=== PATIENT | male | born 1965 | race Caucasian/White ===

== ENCOUNTER → 2019-05-18 | Outpatient (CLI) | payer BC ==
--- NOTE | 2019-06-04 10:37 | EM ---
EVENT MONITOR DATE OF SERVICE: 05/18/2019. REFERRING PHYSICIANS: Dr. Adhikari CLINICAL INFORMATION: The patient was monitored for 14 days. The baseline rhythm appeared to be sinus mechanism. The patient did have multiple episodes of nonsustained ventricular tachycardia. Beside that, the patient did have multiple episodes of narrow complex tachycardia consistent with possible atrial fibrillation with RVR. He did report multiple episodes of symptoms including heart racing and fluttering as well as fast heartbeat and these episodes were consistent with ventricular tachycardia mainly. No evidence of sinus pause or sinus arrest. No evidence of any advanced AV block seen. CONCLUSION: 1. This is a 14-day event monitor. 2. The baseline rhythm is a sinus mechanism. 3. Multiple episodes of ventricular tachycardia seen. 4. Multiple episodes of atrial fibrillation with RVR seen. 5. The patient reported symptoms of heart racing and fluttering and the symptoms were associated with ventricular tachycardia as well as with atrial fibrillation. 6. No evidence of sinus pause or sinus arrest seen in the dictation. MMODL / IJN: [id number] /
== END | disposition home or self-care (01) ==
LOC: RADECHMAIN 11:59
PROVIDERS: ATTEND Family Medicine
DX: I47.2 Ventricular tachycardia (principal); I48.2 Chronic atrial fibrillation
CPT/HCPCS: 93270

== ENCOUNTER → 2019-06-01 | Outpatient (CLI) | payer BC ==
--- NOTE | 2019-06-02 08:59 | ECHOF ---
Referral Reason:R00.2 palpitations MEASUREMENTS -------- HEIGHT: 182.9 cm WEIGHT: 54.9 kg BP: RVIDd: 3.1 cm (< 3.3) IVSd: 1.3 cm (0.6 - 1.1) LVIDd: 4.7 cm (3.9 - 5.3) LVPWd: 1.7 cm (0.6 - 1.1) IVSs: 1.6 cm LVIDs: 4.1 cm LVPWs: 1.5 cm LA Diam: 3.7 cm (2.7 - 3.8) LAESV Index (A-L): 25.39 ml/m Ao Diam: 3.4 cm (2.0 - 3.7) AV Cusp: 1.9 cm (1.5 - 2.6) LA Diam: 3.4 cm (2.7 - 3.8) MV EXCURSION: 20.130 mm (> 18.000) MV EF SLOPE: 84 mm/s (70 - 150) EPSS: 0.7 cm MV E Ramon: 0.35 m/s MV DecT: 245 ms MV A Ramon: 0.54 m/s MV E/A Ratio: 0.66 RAP: 5.00 mmHg RVSP: 22.41 mmHg FINDINGS -------- Sinus rhythm. This was a technically good study. The left ventricular size is normal. There is mild concentric left ventricular hypertrophy. Overa ll left ventricular systolic function is mildly impaired with, an EF between 45 - 50 %. The right ventricle is normal in size. The left atrial size is normal. Normal LA size by volume 22+/-6 ml/m2. The right atrial size is normal. The aortic valve is trileaflet, and appears structurally normal. No aortic stenosis or regurgitation. Mild mitral annular calcification present. Mild mitral regurgitation is present. Mild tricuspid regurgitation present. There is no evidence of pulmonary hypertension. The right v entricular systolic pressure, as measured by Doppler, is 22.41mmHg. There is no pulmonic regurgitation present. The aortic root size is normal. There is no pericardial effusion. CONCLUSIONS -------- 1. Sinus rhythm. 2. This was a technically good study. 3. The left ventricular size is normal. 4. Overall left ventricular systolic function is mildly impaired with, an EF between 45 - 50 %. 5. The right ventricle is normal in size. 6. The left atrial size is normal. 7. Normal LA size by volume 22+/-6 ml/m2. 8. The right atrial size is normal. 9. The aortic valve is trileaflet, and appears structurally normal. No aortic stenosis or regurgitati on. 10. Mild mitral annular calcification present. 11. Mild mitral regurgitation is present. 12. Mild tricuspid regurgitation present. 13. There is no evidence of pulmonary hypertension. 14. The right ventricular systolic pressure, as measured by Doppler, is 22.41mmHg. 15. There is no pulmonic regurgitation present. 16. The aortic root size is normal. 17. There is no pericardial effusion. TORCH SHEARER: Анна Gonzalez RDCS
== END | disposition home or self-care (01) ==
LOC: RADECHMAIN 14:50
PROVIDERS: ATTEND Family Medicine
DX: I08.1 Rheumatic disorders of both mitral and tricuspid valves (principal)
CPT/HCPCS: 93306

== ENCOUNTER 2020-11-12 16:20 | Emergency (ER) | payer BC ==
[2020-11-12] MEDS ORDERED: SODIUM CHLORIDE 0.9% 1,000 ML IV STA (17:33)
--- NOTE | 2020-11-12 17:33 | ED ---
Seizure HPI - General Chief Complaint: Seizure Stated Complaint: Poss seizures Time Seen by Provider: 11/12/20 16:53 Source: patient, family, EMS Mode of arrival: EMS Limitations: no limitations - History of Present Illness Initial Comments: Brice is a 55-year-old male who presents to the ER today for evaluation of possible seizure. Patient reports that he is under a lot of stress and hasn't been sleeping well, he states that he got up early this morning to repair for a meeting. Patient reports that he was on a conference call for work and he began feeling some mental fog. He states that he could read the words on his screen but could not articulate clearly. He states that this lasted for a few minutes, and associated on the call asked him if he was feeling okay and he said no. He excused himself from the colon walk to the living room. Once the living room of his home he had a witnessed seizure, his called 911 for transport to the hospital. Upon EMS arrival the patient was awake and alert, he cannot recall walking to the living room or the seizure activity. He did note that he had injury to his tongue and lip. He did not have any loss of bowel or bladder continence. He has no history of seizure however his mother had epilepsy. - Related Data Allergies Allergy/AdvReac Type Severity Reaction Status Date / Time bee venom protein (honey bee) Allergy Rash/Hives Verified 11/12/20 16:52 codeine AdvReac headaches Verified 11/12/20 16:51 Review of Systems ROS Statement: Those systems with pertinent positive or pertinent negative responses have been documented in the HPI. ROS Other: All systems not noted in ROS Statement are negative. Past Medical History Past Medical History: Cancer, Hyperlipidemia, Prostate Disorder, Pulmonary Embolus (PE) Additional Past Medical History / Comment(s): skin , arrythmia History of Any Multi-Drug Resistant Organisms: None Reported Past Surgical History: Orthopedic Surgery Additional Past Surgical History / Comment(s): lt ankle, Past Psychological History: No Psychological Hx Reported Smoking Status: Former smoker Past Alcohol Use History: None Reported Past Drug Use History: None Reported General Exam - General Exam Comments Initial Comments: Physical Exam GENERAL: Patient is well-developed and well-nourished. Patient is nontoxic and well-hydrated and is in no distress. HENT: Normocephalic, Atraumatic. laceration of the right lower lip, evidence of tongue biting EYES: PERRL, EOMI PULMONARY: Unlabored respirations. CARDIOVASCULAR: There is a regular rate and rhythm without any murmurs gallops or rubs. ABDOMEN: Soft and nontender with normal bowel sounds. SKIN: Skin is clear with no lesions or rashes and otherwise unremarkable. : Deferred NEUROLOGIC: Patient is alert and oriented x3. Moving all extremities spontaneously MUSCULOSKELETAL: Normal extremities with adequate strength and full range of motion. No lower extremity swelling or edema. No calf tenderness. PSYCHIATRIC: Normal psychiatric evaluation. Limitations: no limitations Course Vital Signs 11/12/20 11/12/20 11/12/20 16:30 17:50 18:00 Temperature 98.3 F Pulse Rate 78 71 81 Respiratory 16 18 18 Rate Blood Pressure 116/55 117/72 138/65 O2 Sat by Pulse 95 99 99 Oximetry 11/12/20 11/12/20 19:00 20:15 Temperature 98.2 F Pulse Rate 71 83 Respiratory 20 18 Rate Blood Pressure 144/71 143/77 O2 Sat by Pulse 98 98 Oximetry Medical Decision Making - Medical Decision Making patient was seen and evaluated history is obtained from the patient and at bedside as well as EMS Patient with no neurologic history of presenting after an apparent seizure, upon arrival patient is asymptomatic, does not appear to be postictal NIH 0 Labs were obtained, Lactic was elevated consistent with seizure Head CT negative Results were discussed with patient and in detail, I did offer admission for observation and evaluation by neurologist. I did discuss possible differential diagnosis including TIA vs new onset seizure. Patient has remained asymptomatic in the ER and does not want to be admitted. Did discuss that we cannot rule out TIA or other neurologic pathology without additional testing including MRI/EEG and evaluation by neurology. Patient and state they will call 911/return immediately for any new concerns, otherwise will follow up out patient with PCP and neurology. - Lab Data Result diagrams: 11/12/20 17:35 11/12/20 17:35 Lab Results 11/12/20 11/12/20 11/12/20 Range/Units 17:35 17:35 17:35 WBC 7.3 (3.8-10.6) k/uL RBC 4.88 (4.30-5.90) m/uL Hgb 14.9 (13.0-17.5) gm/dL Hct 44.3 (39.0-53.0) % MCV 90.7 (80.0-100.0) fL MCH 30.4 (25.0-35.0) pg MCHC 33.5 (31.0-37.0) g/dL RDW 12.5 (11.5-15.5) % Plt Count 250 (150-450) k/uL MPV 7.3 Neutrophils % 59 % Lymphocytes % 31 % Monocytes % 5 % Eosinophils % 2 % Basophils % 1 % Neutrophils # 4.2 (1.3-7.7) k/uL Lymphocytes # 2.2 (1.0-4.8) k/uL Monocytes # 0.4 (0-1.0) k/uL Eosinophils # 0.2 (0-0.7) k/uL Basophils # 0.1 (0-0.2) k/uL PT 10.0 (9.0-12.0) sec INR 0.9 (<1.2) APTT 20.2 L (22.0-30.0) sec Sodium 137 (137-145) mmol/L Potassium 4.2 (3.5-5.1) mmol/L Chloride 103 (98-107) mmol/L Carbon Dioxide 21 L (22-30) mmol/L Anion Gap 13 mmol/L BUN 22 H (9-20) mg/dL Creatinine 0.81 (0.66-1.25) mg/dL Est GFR (CKD-EPI)AfAm >90 (>60 ml/min/1.73 sqM) Est GFR (CKD-EPI)NonAf >90 (>60 ml/min/1.73 sqM) Glucose 128 H (74-99) mg/dL Lactic Ac Sepsis Rflx Plasma Lactic Acid Shaheed (0.7-2.0) mmol/L Calcium 9.4 (8.4-10.2) mg/dL Total Bilirubin 0.7 (0.2-1.3) mg/dL AST 37 (17-59) U/L ALT 30 (4-49) U/L Alkaline Phosphatase 56 (38-126) U/L Troponin I (0.000-0.034) ng/mL Total Protein 6.9 (6.3-8.2) g/dL Albumin 4.4 (3.5-5.0) g/dL 11/12/20 11/12/20 11/12/20 Range/Units 17:35 17:35 18:05 WBC (3.8-10.6) k/uL RBC (4.30-5.90) m/uL Hgb (13.0-17.5) gm/dL Hct (39.0-53.0) % MCV (80.0-100.0) fL MCH (25.0-35.0) pg MCHC (31.0-37.0) g/dL RDW (11.5-15.5) % Plt Count (150-450) k/uL MPV Neutrophils % % Lymphocytes % % Monocytes % % Eosinophils % % Basophils % % Neutrophils # (1.3-7.7) k/uL Lymphocytes # (1.0-4.8) k/uL Monocytes # (0-1.0) k/uL Eosinophils # (0-0.7) k/uL Basophils # (0-0.2) k/uL PT (9.0-12.0) sec INR (<1.2) APTT (22.0-30.0) sec Sodium (137-145) mmol/L Potassium (3.5-5.1) mmol/L Chloride (98-107) mmol/L Carbon Dioxide (22-30) mmol/L Anion Gap mmol/L BUN (9-20) mg/dL Creatinine (0.66-1.25) mg/dL Est GFR (CKD-EPI)AfAm (>60 ml/min/1.73 sqM) Est GFR (CKD-EPI)NonAf (>60 ml/min/1.73 sqM) Glucose (74-99) mg/dL Lactic Ac Sepsis Rflx Y Plasma Lactic Acid Shaheed 5.4 H* (0.7-2.0) mmol/L Calcium (8.4-10.2) mg/dL Total Bilirubin (0.2-1.3) mg/dL AST (17-59) U/L ALT (4-49) U/L Alkaline Phosphatase (38-126) U/L Troponin I <0.012 (0.000-0.034) ng/mL Total Protein (6.3-8.2) g/dL Albumin (3.5-5.0) g/dL - EKG Data -: EKG Interpreted by Me EKG Comments: EKG was obtained at 1802, rate is 66 rhythm is sinus there is a normal axis, normal intervals, WI 172, QRS 114, QTC 431 there are no acute ST elevations or depressions no evidence of acute ischemia or infarction Disposition Clinical Impression: New onset seizure Disposition: HOME SELF-CARE Condition: Stable Instructions (If sedation given, give patient instructions): New-Onset Seizure in Adults (ED) Is patient prescribed a controlled substance at d/c from ED?: No Referrals: Adenike Adhikari MD [Primary Care Provider] - 1-2 days James Marion MD [Medical Doctor] - 1-2 days Willy Coleman MD [STAFF PHYSICIAN] - 1-2 days Kaushal Bee MD [STAFF PHYSICIAN] - 1-2 days Ye Curran MD [STAFF PHYSICIAN] - 1-2 days Gibson Quintanilla MD [REFERRING] - 1-2 days Radha Quintanilla MD [REFERRING] - 1-2 days
[2020-11-12 17:47] LABS: Basophils # (A) 0.1 k/uL (0-0.2); Basophils % (A) 1 %; Eosinophils # (A) 0.2 k/uL (0-0.7); Eosinophils % (A) 2 %; HCT 44.3 % (39.0-53.0); HGB 14.9 gm/dL (13.0-17.5); Lymphocytes # (A) 2.2 k/uL (1.0-4.8); Lymphocytes % (A) 31 %; MCH 30.4 pg (25.0-35.0); MCHC 33.5 g/dL (31.0-37.0); MCV 90.7 fL (80.0-100.0); Mean Platelet Volume 7.3; Monocytes # (A) 0.4 k/uL (0-1.0); Monocytes % (A) 5 %; Neutrophils # (A) 4.2 k/uL (1.3-7.7); Neutrophils % (A) 59 %; Platelet Count 250 k/uL (150-450); RBC 4.88 m/uL (4.30-5.90); RDW 12.5 % (11.5-15.5); WBC 7.3 k/uL (3.8-10.6)
[2020-11-12 17:55] LABS: INR 0.9 (<1.2)
[2020-11-12 17:57] LABS: ALT 30 U/L (4-49); AST 37 U/L (17-59); African American GFR (CKD) >90 (>60 ml/min/1.73 sqM); Albumin 4.4 g/dL (3.5-5.0); Alkaline Phosphatase 56 U/L (38-126); Anion Gap 13 mmol/L; Blood Urea Nitrogen 22 mg/dL (9-20); Calcium 9.4 mg/dL (8.4-10.2); Carbon Dioxide 21 mmol/L (22-30); Chloride 103 mmol/L (98-107); Glucose 128 mg/dL (74-99); Non-African American GFR(CKD) >90 (>60 ml/min/1.73 sqM); Sodium 137 mmol/L (137-145); Total Bilirubin 0.7 mg/dL (0.2-1.3); Total Protein 6.9 g/dL (6.3-8.2)
[2020-11-12 17:59] LABS: Potassium 4.2 mmol/L (3.5-5.1)
--- NOTE | 2020-11-12 18:26 | CT ---
EXAMINATION TYPE: CT brain wo con for TPA DATE OF EXAM: 11/12/2020 COMPARISON: None HISTORY: Seizure today. No history of seizures. CT DLP: 1098.4 mGycm Automated exposure control for dose reduction was used. Ventricles have normal size. There is no mass effect nor midline shift. There is no sign of intracran ial hemorrhage. Calvarium is intact. IMPRESSION: Normal unenhanced head CT scan.
[2020-11-12 18:47] LABS: Partial Thromboplastin Time 20.2 sec (22.0-30.0)
[2020-11-12 20:42] VITALS: BP 143/77; PULSE 83; RESP 18; TEMP 98.2
== END 2020-11-12 20:15 | disposition home or self-care (01) ==
LOC: EC 16:20
DX: R56.9 Unspecified convulsions (principal); S01.511A Laceration without foreign body of lip, initial encounter; R74.02 Elevation of levels of lactic acid dehydrogenase [LDH]; Z91.030 Bee allergy status; Z88.5 Allergy status to narcotic agent; Z87.891 Personal history of nicotine dependence; Z86.711 Personal history of pulmonary embolism; Z85.9 Personal history of malignant neoplasm, unspecified; X58.XXXA Exposure to other specified factors, initial encounter
CPT/HCPCS: 36415; 70450; 80053; 83605; 84484; 85025; 85610; 85730; 93005; 96360; 99285

== ENCOUNTER → 2020-11-20 | Outpatient (CLI) | payer BC ==
--- NOTE | 2020-11-20 08:53 | CT ---
EXAMINATION TYPE: CT angio neck DATE OF EXAM: 11/20/2020 HISTORY: CVA, pt had an episode where he couldn't form words COMPARISON: CT brain [address] DLP: 349.1 mGycm. Automated Exposure Control for Dose Reduction was Utilized. TECHNIQUE: CTA scan of the neck is performed with IV Contrast, patient injected with 65 mL of Isovue 370, axial images are obtained, coronal and sagittal reformatted images are reviewed. . 3D reconstru cted images are created on an independent workstation and reviewed. FINDINGS: Carotid/Vascular Structures: Normal three-vessel origin from aortic arch. Normal origin right common carotid artery from the right brachiocephalic artery. No significant plaque or stenosis. Mild posteri or peripheral calcified plaque right carotid bulb extends into proximal internal carotid artery. No l eft-sided plaque. No significant stenosis in common or internal carotid arteries bilaterally. No sign ificant plaque or stenosis in the external iliac arteries bilaterally. There is tortuous course to the distal right vertebral artery. Vertebral arteries are patent to basil ar junction. Other: Nasal septum slightly deviated to right of midline. Mild to moderate mucosal thickening inferiorly in the maxillary sinuses left greater than right. Subcentimeter left thyroid nodule lower pole level axial image 26. Visualized lungs show mild emphysematous change and mild scattered areas of parenchymal scarring. Mild to moderate disc space narrowing and mild spurring C4-C5 and C5-C6 levels. IMPRESSION: No significant stenosis in common or internal carotid arteries bilaterally.
--- NOTE | 2020-11-20 11:49 | MR ---
EXAMINATION TYPE: MR brain wo/w con DATE OF EXAM: 11/20/2020 11:43 AM COMPARISON: NONE HISTORY: Seizure/stroke like symptomes. Could read words but could not say them FINDINGS: The ventricles, basal cisterns and sulci overlying the cerebral convexities are mildly enlarged. There is evidence of mild to moderate confluent periventricular white matter ischemic demyelination. Remote deep white matter insults are also noted. No acute edema is seen on diffusion weighted imaging. There is no evidence for midline shift or mass effect. Acute intracranial hemorrhage or extra-axial collection is not evident. The paranasal sinuses and mastoid air cells are well-aerated. IMPRESSION: Age-related atrophic and chronic small vessel ischemic change. No acute intracranial process at this time.
== END | disposition home or self-care (01) ==
LOC: RADCTMAIN 08:07
PROVIDERS: ATTEND Family Medicine
DX: R29.810 Facial weakness (principal)
CPT/HCPCS: 70498; 70553; A9585; Q9967

== ENCOUNTER → 2022-06-22 | Outpatient (CLI) | payer BC ==
--- NOTE | 2022-06-22 15:40 | US ---
EXAMINATION TYPE: US thyroid st tissue head/neck DATE OF EXAM: 06/22/2022 COMPARISON: NONE CLINICAL HISTORY: E04.1 NONTOXIC SINGLE THYROID NODULE. GLAND SIZE: Right Lobe: 5.6 X 1.9 X 2.1 cm Overall Parenchyma: homogenous Left Lobe: 5.8 X 1.6 X 1.7 cm Overall Parenchyma: homogeneous Isthmus Thickness: 0.4 cm NODULES RIGHT: # of nodules measured on right: 1 1. 0.7 X 0.5 x 0.5 cm, mid mid, mixed cystic and solid, hypoechoic nodule, which is wider than tall , with smooth margins, without echogenic foci. Prior size: NO PRIOR LEFT: # of nodules measured on left: 1 1. 0.7 X 0.6 x 0.7 cm, mid lateral, solid or almost completely solid, hypoechoic nodule, which is w ider than tall, with smooth margins, without echogenic foci. Prior size: NO PRIOR ISTHMUS: # of nodules measured in the isthmus: 0 Bilateral neck scanned, no evidence of lymphadenopathy. IMPRESSION: Subcentimeter thyroid nodularity is nonspecific.
== END | disposition home or self-care (01) ==
LOC: RADUSWWP 15:02
PROVIDERS: ATTEND Family Medicine
DX: E04.1 Nontoxic single thyroid nodule (principal)
CPT/HCPCS: 76536

== ENCOUNTER 2022-08-24 16:55 | Inpatient (IN) | payer OTHER, BC ==
[2022-08-24] MEDS ORDERED: ACETAMINOPHEN TAB 325 MG TAB PO STA (17:08)
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
[2022-08-24 17:26] LABS: Basophils # (A) 0.1 k/uL (0-0.2); Basophils % (A) 1 %; Eosinophils # (A) 0.1 k/uL (0-0.7); Eosinophils % (A) 1 %; HCT 43.7 % (39.0-53.0); Lymphocytes # (A) 3.4 k/uL (1.0-4.8); Lymphocytes % (A) 30 %; MCH 30.5 pg (25.0-35.0); MCHC 34.3 g/dL (31.0-37.0); MCV 88.8 fL (80.0-100.0); Mean Platelet Volume 7.8; Monocytes # (A) 0.6 k/uL (0-1.0); Monocytes % (A) 5 %; Neutrophils # (A) 7.2 k/uL (1.3-7.7); Neutrophils % (A) 62 %; Platelet Count 309 k/uL (150-450); RBC 4.92 m/uL (4.30-5.90); RDW 12.7 % (11.5-15.5); WBC 11.5 k/uL (3.8-10.6)
[2022-08-24 17:43] LABS: ALT 36 U/L (4-49); African American GFR (CKD) >90 (>60 ml/min/1.73 sqM); Alcohol <10 mg/dL; Anion Gap 10 mmol/L; Blood Urea Nitrogen 16 mg/dL (9-20); Carbon Dioxide 21 mmol/L (22-30); Chloride 105 mmol/L (98-107); Glucose 109 mg/dL (74-99); Non-African American GFR(CKD) >90 (>60 ml/min/1.73 sqM); Sodium 136 mmol/L (137-145); Total Bilirubin 0.9 mg/dL (0.2-1.3)
[2022-08-24 17:48] LABS: Albumin 4.5 g/dL (3.5-5.0); Total Protein 6.7 g/dL (6.3-8.2)
[2022-08-24 17:49] LABS: AST 51 U/L (17-59); Alkaline Phosphatase 68 U/L (38-126); Potassium 4.1 mmol/L (3.5-5.1)
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
[2022-08-24] MEDS ORDERED: MORPHINE SULFATE 4 MG/ML SYRINGE IV STA (18:44)
[2022-08-24] MEDS ORDERED: SODIUM CHLORIDE 0.9% 1,000 ML IV ONE (19:06)
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
[2022-08-24] MEDS ORDERED: HYDROmorphone 1 MG/ML 1 ML SYRINGE IVP STA (20:33)
[2022-08-24] MEDS ORDERED: ONDANSETRON 4 MG/2 ML VIAL IVP PRN (20:49)
[2022-08-24] MEDS ORDERED: MAG HYDROX/AL HYDROX/SIMETH 30 ML CUP PO PRN (20:49)
[2022-08-24] MEDS ORDERED: MAGNESIUM HYDROXIDE 2,400 MG/10 ML CUP PO PRN (20:49)
[2022-08-24] MEDS ORDERED: DOCUSATE 100 MG CAP PO PRN (20:49)
[2022-08-24] MEDS ORDERED: ACETAMINOPHEN TAB 325 MG TAB PO PRN (20:49)
[2022-08-24] MEDS ORDERED: NALOXONE 0.4 MG/ML 1 ML VIAL IV PRN (20:49)
[2022-08-24] MEDS: SODIUM CHLORIDE 0.9% 1,000 ML IV SCH (22:05)
[2022-08-24] MEDS: FAMOTIDINE 20 MG TAB PO SCH (22:06)
[2022-08-25] MEDS: HYDROmorphone 1 MG/ML 1 ML SYRINGE IVP PRN ×2 (01:44→07:47)
[2022-08-25] MEDS: HYDROmorphone 0.5 MG/0.5 ML SYRINGE IVP PRN ×4 (04:35→23:20)
[2022-08-25] MEDS: FAMOTIDINE 20 MG TAB PO SCH ×2 (09:21→21:41)
[2022-08-25] MEDS ORDERED: LORazepam 2 MG/ML INJ IV PRN (10:00)
[2022-08-25 10:29] LABS: Appearance,Urine Clear (Clear); Bilirubin,Urine Negative (Negative); Blood,Urine Negative (Negative); Color,Urine Yellow; Glucose,Urine (UA) Negative (Negative); Ketones,Urine Negative (Negative); Leukocyte Esterase,Urine Negative (Negative); Nitrite,Urine Negative (Negative); PH, Urine 5.5 (5.0-8.0); Protein,Urine Negative (Negative); Specific Gravity,Urine 1.015 (1.001-1.035); Urobilinogen,Urine <2.0 mg/dL (<2.0)
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
[2022-08-25] MEDS: SODIUM CHLORIDE 0.9% 1,000 ML IV SCH ×2 (14:03→14:09)
[2022-08-25] MEDS ORDERED: levETIRAcetam IV 1,000 MG in SALINE 1 100ML.BAG IVPB STA (15:04)
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
[2022-08-25 16:00] LABS: Amphetamine Screen,Urine Not Detected (NotDetected); Barbiturate Screen,Urine Not Detected (NotDetected); Benzodiazepines Screen,Urine Not Detected (NotDetected); Cocaine Screen,Urine Not Detected (NotDetected); Methadone Screen, Urine Not Detected (NotDetected); Opiate Screen,Urine Detected (NotDetected); Oxycodone Screen, Urine Not Detected (NotDetected); Phencyclidine Screen,Urine Not Detected (NotDetected); Tricyclic Antidepressant,Urine Not Detected (NotDetected); Urn Cannabinoid Scrn Not Detected (NotDetected)
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
--- NOTE | 2022-08-25 17:44 | CT ---
EXAMINATION TYPE: CT abdomen pelvis wo con CT DLP: 957.8 mGycm, Automated exposure control for dose reduction was used. DATE OF EXAM: 08/25/2022 5:22 PM COMPARISON: MRI lumbar spine same day, CT lumbar spine 08/15/2022. CLINICAL INDICATION:Male, 57 years old with history of urinary retention/trauma; Urinary retention TECHNIQUE: Axial CT of the abdomen and pelvis. Sagittal and coronal reformats were created on a own[employer] workstation. Contrast used: None Oral contrast used: without Oral Contrast FINDINGS: LOWER CHEST: Bilateral trace pleural effusions with associated atelectasis ABDOMEN LIVER: Unremarkable GALLBLADDER AND BILE DUCTS: Unremarkable. PANCREAS: Unremarkable. SPLEEN: Unremarkable. ADRENAL GLANDS: Unremarkable. KIDNEYS AND URETERS: Nonobstructing left renal calculus. No right renal calculi. No evidence hydronep hrosis bilaterally. PELVIS BLADDER: Urinary bladder is distended with Avalos catheter in place. There is high density products wi thin thee urinary bladder measuring 63 Hounsfield units REPRODUCTIVE: Unremarkable. ABDOMEN & PELVIS STOMACH AND BOWEL: No evidence of bowel obstruction. PERITONEUM: No evidence of pneumoperitoneum or free fluid. VASCULATURE: No evidence of aortic aneurysm. Atherosclerosis of the arterial vasculature. MUSCULOSKELETAL: Fractures of T12-L1 and burst fracture of L2 are better characterized on prior CT kendra mbar spine and MRI. The spinal canal isn't significantly changed from MRI same day. LYMPH NODES: No gross evidence for lymphadenopathy. SOFT TISSUE/ABDOMINAL WALL: Unremarkable IMPRESSION: 1. Avalos catheter in place the urinary bladder filled with high density contents. Findings may repre sent blood products versus other. Correlate with urinalysis correlate for Avalos catheter malfunction. 2. Redemonstration fractures of T12-L1 and L2 as seen on prior MRI 3. Trace bilateral pleural effusions.
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
[2022-08-26] MEDS: HYDROmorphone 0.5 MG/0.5 ML SYRINGE IVP PRN ×5 (03:50→20:59)
[2022-08-26 06:00] LABS: Glucose,Whole Blood 121 mg/dL (70-110)
[2022-08-26] MEDS: FAMOTIDINE 20 MG TAB PO SCH ×2 (08:13→21:00)
[2022-08-26] MEDS: SODIUM CHLORIDE 0.9% 1,000 ML IV SCH ×3 (08:14→15:24)
[2022-08-26] MEDS ORDERED: ALBUTEROL NEBULIZED 2.5 MG/3 ML INHALATION PRN (11:43)
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
[2022-08-26] MEDS: HEPARIN SODIUM,PORCINE/PF 5,000 UNIT/0.5 ML SYRINGE SQ SCH ×2 (18:46→18:48)
[2022-08-27] MEDS: HYDROmorphone 0.5 MG/0.5 ML SYRINGE IVP PRN ×2 (00:24→08:01)
[2022-08-27] MEDS: HEPARIN SODIUM,PORCINE/PF 5,000 UNIT/0.5 ML SYRINGE SQ SCH ×3 (00:26→17:14)
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
[2022-08-27] MEDS ORDERED: NON FORMULARY DRUG (Vitamin B Complex [Vitamin B Complex] 1 EACH Capsule) PO SCH (09:00)
[2022-08-27] MEDS ORDERED: NON FORMULARY DRUG (Glucos Sul 2kcl/Msm/Chond/C/Mn [Glucosamine Chondroitin Cap] 1 EACH Ca PO SCH (09:00)
[2022-08-27 09:30] LABS: Basophils # (A) 0.04 X 10*3/uL (0.00-0.10); Basophils % (A) 0.5 %; Eosinophils # (A) 0.17 X 10*3/uL (0.04-0.35); Eosinophils % (A) 1.9 %; HCT 38.6 % (39.6-50.0); HGB 13.2 g/dL (13.0-17.0); Immature Grans, Automated 0.5 %; Lymphocytes # (A) 2.17 X 10*3/uL (0.90-5.00); Lymphocytes % (A) 24.5 %; MCH 30.4 pg (27.0-32.0); MCHC 34.2 g/dL (32.0-37.0); MCV 88.9 fL (80.0-97.0); Mean Platelet Volume 9.6 fL (9.5-12.2); Monocytes # (A) 0.97 X 10*3/uL (0.20-1.00); NRBC Per 100 WBC 0 /100 WBCS (0.0-0.0); Neutrophils # (A) 5.46 X 10*3/uL (1.80-7.70); Neutrophils % (A) 61.6 %; Platelet Count 197 X 10*3/uL (140-440); RBC 4.34 X 10*6/uL (4.40-5.60); RDW 12.7 % (11.5-14.5); WBC 8.85 X 10*3/uL (4.50-10.00)
[2022-08-27 09:54] LABS: Anion Gap 9.9 mmol/L (10.00-18.00); BUN/Creat Ratio 17.06 Ratio (12.00-20.00); Blood Urea Nitrogen 14.6 mg/dL (9.0-27.0); Calcium 8.4 mg/dL (8.7-10.3); Carbon Dioxide 24.3 mmol/L (20.0-27.5); Non-African American GFR(CKD) 95.8 (60.0-200.0); Potassium 4.2 mmol/L (3.5-5.5)
[2022-08-27] MEDS: ATORVASTATIN 40 MG TAB PO SCH (09:59)
[2022-08-27] MEDS: CHOLECALCIFEROL 25 MCG (1000 IU) TABLET PO SCH (09:59)
[2022-08-27] MEDS: FINASTERIDE 5 MG TAB PO SCH (09:59)
[2022-08-27] MEDS: POTASSIUM CHLORIDE ER 10 MEQ TAB.ER.PRT PO SCH (09:59)
[2022-08-27] MEDS: MAGNESIUM OXIDE 400 MG TAB PO SCH (09:59)
[2022-08-27] MEDS: METOPROLOL SUCCINATE (ER) 25 MG TAB.ER.24H PO SCH (09:59)
[2022-08-27] MEDS: TAMSULOSIN 0.4 MG CAP.ER.24H PO SCH (09:59)
[2022-08-27] MEDS: FAMOTIDINE 20 MG TAB PO SCH ×2 (10:00→20:51)
[2022-08-27] MEDS: HYDROmorphone 1 MG/ML 1 ML SYRINGE IVP PRN ×2 (11:46→19:59)
[2022-08-27] MEDS: SODIUM CHLORIDE 0.9% 1,000 ML IV SCH (14:08)
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
[2022-08-28] MEDS: HYDROmorphone 1 MG/ML 1 ML SYRINGE IVP PRN ×3 (01:19→21:18)
[2022-08-28] MEDS: HEPARIN SODIUM,PORCINE/PF 5,000 UNIT/0.5 ML SYRINGE SQ SCH ×2 (01:22→11:19)
[2022-08-28] MEDS ORDERED: LACTATED RINGERS 1,000 ML IV ONE ×3 (08:21→11:41)
[2022-08-28] MEDS ORDERED: BUPIVACAINE (PF) 0.25% 30 ML VIAL SQ ONE ×2 (09:00)
[2022-08-28] MEDS ORDERED: LIDOCAINE 0.5%-EPI 1:200,000 50 ML VIAL SQ ONE ×3 (09:00)
[2022-08-28] MEDS ORDERED: GELATIN SPONGE,ABSORB (LARGE) 1 EACH SPONGE TOPICAL ONE (09:07)
[2022-08-28] MEDS ORDERED: THROMBIN (BOVINE) 5,000 UNIT VIAL TOPICAL ONE (09:09)
[2022-08-28 11:16] LABS: Basophils # (A) 0.03 X 10*3/uL (0.00-0.10); Basophils % (A) 0.4 %; Eosinophils # (A) 0.25 X 10*3/uL (0.04-0.35); Eosinophils % (A) 3.4 %; HCT 39.7 % (39.6-50.0); HGB 13.6 g/dL (13.0-17.0); Immature Grans, Automated 0.7 %; Lymphocytes # (A) 1.98 X 10*3/uL (0.90-5.00); MCH 30.1 pg (27.0-32.0); MCHC 34.3 g/dL (32.0-37.0); MCV 87.8 fL (80.0-97.0); Mean Platelet Volume 9.7 fL (9.5-12.2); Monocytes # (A) 0.76 X 10*3/uL (0.20-1.00); Monocytes % (A) 10.4 %; NRBC Per 100 WBC 0 /100 WBCS (0.0-0.0); Neutrophils # (A) 4.27 X 10*3/uL (1.80-7.70); Neutrophils % (A) 58.1 %; Platelet Count 203 X 10*3/uL (140-440); RBC 4.52 X 10*6/uL (4.40-5.60); RDW 12.7 % (11.5-14.5); WBC 7.34 X 10*3/uL (4.50-10.00)
[2022-08-28] MEDS: FAMOTIDINE 20 MG TAB PO SCH ×2 (11:19→20:15)
[2022-08-28] MEDS: MAGNESIUM OXIDE 400 MG TAB PO SCH (11:19)
[2022-08-28] MEDS: CHOLECALCIFEROL 25 MCG (1000 IU) TABLET PO SCH (11:19)
[2022-08-28] MEDS: ATORVASTATIN 40 MG TAB PO SCH (11:19)
[2022-08-28] MEDS: METOPROLOL SUCCINATE (ER) 25 MG TAB.ER.24H PO SCH (11:20)
[2022-08-28] MEDS: POTASSIUM CHLORIDE ER 10 MEQ TAB.ER.PRT PO SCH (11:20)
[2022-08-28] MEDS: TAMSULOSIN 0.4 MG CAP.ER.24H PO SCH (11:20)
[2022-08-28] MEDS: FINASTERIDE 5 MG TAB PO SCH (11:21)
--- NOTE | 2022-08-28 11:24 | P.ANPRN ---
Procedure Note - Anesthesia - Invasive Line Right Arterial Line Time Out Performed: Yes Date of Procedure: 08/28/22 Time of Procedure: 07:45 Location of Patient: PreOp Preparation: Sterile Prep, Sterile Dressing Arterial Line Location: Radial Ultrasound Used: Yes Purpose - Visualization and Identification of Vasculature: Yes Needle Guage: 20 Image Stored and Saved: Yes Narrative: Right radial arterial line placed under u/s guidance using Seldinger technique. Sutured in place. Biopatch and sterile dressing applied
[2022-08-28 11:27] LABS: African American GFR (CKD) 117.6 (60.0-200.0); Anion Gap 9.2 mmol/L (10.00-18.00); BUN/Creat Ratio 18.82 Ratio (12.00-20.00); Calcium 8.9 mg/dL (8.7-10.3); Carbon Dioxide 24.6 mmol/L (20.0-27.5); Non-African American GFR(CKD) 101.5 (60.0-200.0); Potassium 4.4 mmol/L (3.5-5.5)
--- NOTE | 2022-08-28 11:49 | XR ---
EXAMINATION TYPE: XR lumbar spine 2 or 3V, FL guidance operating room DATE OF EXAM: 08/28/2022 11:20 AM INDICATION: Patient age:Male; 57 years old; Reason for study: T11-L4 decompression/fusion; Intraoperative/procedural fluoroscopic services were provided. Total fluoroscopy time is 1 minute sec onds with a total of 10 submitted images to PACS. Please see the operative/procedural note for further details.
[2022-08-28] MEDS ORDERED: BENZOCAINE/MENTHOL LOZENG 1 EACH LOZENGE MUCOUS MEM PRN (12:05)
[2022-08-28] MEDS ORDERED: HYDROmorphone 0.5 MG/0.5 ML SYRINGE IVP PRN (12:05)
[2022-08-28] MEDS ORDERED: HYDROmorphone 0.5 MG/0.5 ML SYRINGE IVP ONE ×3 (12:10→12:53)
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
[2022-08-28] MEDS: HYDROcodone/APAP 5-325MG 1 EACH TAB PO PRN ×2 (14:48→20:14)
[2022-08-28] MEDS: CYCLOBENZAPRINE 10 MG TAB PO PRN (14:57)
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
[2022-08-28] MEDS: SODIUM CHLORIDE 0.9% 1,000 ML IV SCH ×2 (20:11→20:20)
[2022-08-29] MEDS: HYDROcodone/APAP 5-325MG 1 EACH TAB PO PRN ×2 (00:38→04:52)
[2022-08-29] MEDS: CYCLOBENZAPRINE 10 MG TAB PO PRN ×4 (00:42→20:23)
[2022-08-29] MEDS: HYDROmorphone 1 MG/ML 1 ML SYRINGE IVP PRN ×6 (01:06→20:23)
[2022-08-29] MEDS: SODIUM CHLORIDE 0.9% 1,000 ML IV SCH ×5 (02:58→22:22)
[2022-08-29] MEDS: MAGNESIUM OXIDE 400 MG TAB PO SCH (09:17)
[2022-08-29] MEDS: POTASSIUM CHLORIDE ER 10 MEQ TAB.ER.PRT PO SCH (09:17)
[2022-08-29] MEDS: FINASTERIDE 5 MG TAB PO SCH (09:17)
[2022-08-29] MEDS: ATORVASTATIN 40 MG TAB PO SCH (09:17)
[2022-08-29] MEDS: FAMOTIDINE 20 MG TAB PO SCH ×2 (09:17→20:23)
[2022-08-29] MEDS: TAMSULOSIN 0.4 MG CAP.ER.24H PO SCH (09:17)
[2022-08-29] MEDS: METOPROLOL SUCCINATE (ER) 25 MG TAB.ER.24H PO SCH (09:17)
[2022-08-29] MEDS: SENNOSIDES-DOCUSATE SODIUM 1 EACH TAB PO SCH (09:17)
[2022-08-29] MEDS: CHOLECALCIFEROL 25 MCG (1000 IU) TABLET PO SCH (09:17)
[2022-08-29 10:27] LABS: Basophils # (A) 0.02 X 10*3/uL (0.00-0.10); Basophils % (A) 0.2 %; Eosinophils # (A) 0.11 X 10*3/uL (0.04-0.35); Eosinophils % (A) 1.3 %; HCT 37.3 % (39.6-50.0); HGB 12.8 g/dL (13.0-17.0); Immature Grans, Automated 0.5 %; Lymphocytes # (A) 1.01 X 10*3/uL (0.90-5.00); Lymphocytes % (A) 12.2 %; MCH 29.9 pg (27.0-32.0); MCHC 34.3 g/dL (32.0-37.0); MCV 87.1 fL (80.0-97.0); Mean Platelet Volume 9.6 fL (9.5-12.2); Monocytes # (A) 0.93 X 10*3/uL (0.20-1.00); Monocytes % (A) 11.2 %; NRBC Per 100 WBC 0 /100 WBCS (0.0-0.0); Neutrophils # (A) 6.19 X 10*3/uL (1.80-7.70); Neutrophils % (A) 74.6 %; Platelet Count 193 X 10*3/uL (140-440); RBC 4.28 X 10*6/uL (4.40-5.60); RDW 12.2 % (11.5-14.5)
[2022-08-29 10:41] LABS: African American GFR (CKD) 120.6 (60.0-200.0); Anion Gap 10.7 mmol/L (10.00-18.00); BUN/Creat Ratio 14.01 Ratio (12.00-20.00); Blood Urea Nitrogen 9.8 mg/dL (9.0-27.0); Calcium 8.7 mg/dL (8.7-10.3); Carbon Dioxide 24.9 mmol/L (20.0-27.5); Potassium 4.2 mmol/L (3.5-5.5)
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
[2022-08-29] MEDS: HYDROcodone/APAP 7.5-325MG 1 EACH TAB PO PRN ×2 (14:24→20:00)
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
[2022-08-30] MEDS: HYDROcodone/APAP 7.5-325MG 1 EACH TAB PO PRN ×4 (00:01→18:02)
[2022-08-30] MEDS: HYDROmorphone 1 MG/ML 1 ML SYRINGE IVP PRN ×5 (00:01→21:47)
[2022-08-30] MEDS: SODIUM CHLORIDE 0.9% 1,000 ML IV SCH ×4 (05:34→10:25)
[2022-08-30] MEDS: ATORVASTATIN 40 MG TAB PO SCH (08:45)
[2022-08-30] MEDS: TAMSULOSIN 0.4 MG CAP.ER.24H PO SCH (08:45)
[2022-08-30] MEDS: SENNOSIDES-DOCUSATE SODIUM 1 EACH TAB PO SCH (08:45)
[2022-08-30] MEDS: POTASSIUM CHLORIDE ER 10 MEQ TAB.ER.PRT PO SCH (08:45)
[2022-08-30] MEDS: FAMOTIDINE 20 MG TAB PO SCH ×2 (08:45→20:44)
[2022-08-30] MEDS: CHOLECALCIFEROL 25 MCG (1000 IU) TABLET PO SCH (08:45)
[2022-08-30] MEDS: MAGNESIUM OXIDE 400 MG TAB PO SCH (08:45)
[2022-08-30] MEDS: METOPROLOL SUCCINATE (ER) 25 MG TAB.ER.24H PO SCH (08:46)
[2022-08-30] MEDS: FINASTERIDE 5 MG TAB PO SCH (08:46)
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
[2022-08-31] MEDS: HYDROcodone/APAP 7.5-325MG 1 EACH TAB PO PRN ×2 (05:11→18:07)
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
[2022-08-31] MEDS: FINASTERIDE 5 MG TAB PO SCH (06:58)
[2022-08-31] MEDS: SENNOSIDES-DOCUSATE SODIUM 1 EACH TAB PO SCH (06:58)
[2022-08-31] MEDS: MAGNESIUM OXIDE 400 MG TAB PO SCH (06:58)
[2022-08-31] MEDS: TAMSULOSIN 0.4 MG CAP.ER.24H PO SCH (06:58)
[2022-08-31] MEDS: CHOLECALCIFEROL 25 MCG (1000 IU) TABLET PO SCH (06:58)
[2022-08-31] MEDS: ATORVASTATIN 40 MG TAB PO SCH (06:58)
[2022-08-31] MEDS: POTASSIUM CHLORIDE ER 10 MEQ TAB.ER.PRT PO SCH (06:58)
[2022-08-31] MEDS: FAMOTIDINE 20 MG TAB PO SCH ×2 (06:58→21:44)
[2022-08-31] MEDS: METOPROLOL SUCCINATE (ER) 25 MG TAB.ER.24H PO SCH (06:59)
[2022-08-31] MEDS: SODIUM CHLORIDE 0.9% 1,000 ML IV SCH (08:18)
[2022-08-31] MEDS: HYDROmorphone 1 MG/ML 1 ML SYRINGE IVP PRN ×2 (09:05→23:39)
[2022-08-31 12:06] VITALS: BMI 4198.5
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
[2022-09-01] MEDS: RIVAROXABAN 20 MG TAB PO SCH ×2 (07:27→10:57)
[2022-09-01] MEDS: MAGNESIUM OXIDE 400 MG TAB PO SCH (07:42)
[2022-09-01] MEDS: CHOLECALCIFEROL 25 MCG (1000 IU) TABLET PO SCH (07:42)
[2022-09-01] MEDS: POTASSIUM CHLORIDE ER 10 MEQ TAB.ER.PRT PO SCH (07:42)
[2022-09-01] MEDS: METOPROLOL SUCCINATE (ER) 25 MG TAB.ER.24H PO SCH (07:43)
[2022-09-01] MEDS: FAMOTIDINE 20 MG TAB PO SCH (07:43)
[2022-09-01] MEDS: FINASTERIDE 5 MG TAB PO SCH (07:43)
[2022-09-01] MEDS: TAMSULOSIN 0.4 MG CAP.ER.24H PO SCH (07:43)
[2022-09-01] MEDS: SENNOSIDES-DOCUSATE SODIUM 1 EACH TAB PO SCH (07:43)
[2022-09-01] MEDS: ATORVASTATIN 40 MG TAB PO SCH (07:43)
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
[2022-09-01 10:24] LABS: Basophils # (A) 0.05 X 10*3/uL (0.00-0.10); Basophils % (A) 0.7 %; Eosinophils # (A) 0.25 X 10*3/uL (0.04-0.35); Eosinophils % (A) 3.3 %; HGB 12.6 g/dL (13.0-17.0); Immature Grans, Automated 1.4 %; Lymphocytes # (A) 1.61 X 10*3/uL (0.90-5.00); Lymphocytes % (A) 21.2 %; MCH 30.3 pg (27.0-32.0); MCHC 34.1 g/dL (32.0-37.0); MCV 88.9 fL (80.0-97.0); Mean Platelet Volume 9.6 fL (9.5-12.2); Monocytes # (A) 0.92 X 10*3/uL (0.20-1.00); Monocytes % (A) 12.1 %; NRBC Per 100 WBC 0 /100 WBCS (0.0-0.0); Neutrophils # (A) 4.67 X 10*3/uL (1.80-7.70); Neutrophils % (A) 61.3 %; Platelet Count 256 X 10*3/uL (140-440); RBC 4.16 X 10*6/uL (4.40-5.60); RDW 12.4 % (11.5-14.5); WBC 7.61 X 10*3/uL (4.50-10.00)
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
[2022-09-01] MEDS: HYDROcodone/APAP 7.5-325MG 1 EACH TAB PO PRN ×2 (11:15→15:33)
[2022-09-01] MEDS: SODIUM CHLORIDE 0.9% 1,000 ML IV SCH (12:22)
[2022-09-01 14:51] VITALS: BP 96/58; PULSE 71; RESP 18; TEMP 97.6
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
== END 2022-09-01 16:48 | DRG 460 ==
LOC: EC 16:55 → 4SSUR 20:52
PROVIDERS: ADMIT Orthopaedic Surgery Orthopaedic Surgery of the Spine; ATTEND Orthopaedic Surgery Orthopaedic Surgery of the Spine
PROC: 0RH604Z Insertion of Internal Fixation Device into Thoracic Vertebral Joint, Open Approach (ICD-10-PCS; 2022-08-28)
PROC: 0RHA04Z Insertion of Internal Fixation Device into Thoracolumbar Vertebral Joint, Open Approach (ICD-10-PCS; 2022-08-28)
PROC: 0SH004Z Insertion of Internal Fixation Device into Lumbar Vertebral Joint, Open Approach (ICD-10-PCS; 2022-08-28)
PROC: 0PU Upper Bones, Supplement (ICD-10-PCS; 2022-08-28)
PROC: 0QU007Z Supplement Lumbar Vertebra with Autologous Tissue Substitute, Open Approach (ICD-10-PCS; 2022-08-28)
PROC: 0PS43ZZ Reposition Thoracic Vertebra, Percutaneous Approach (ICD-10-PCS; 2022-08-28)
PROC: 0PU43JZ Supplement Thoracic Vertebra with Synthetic Substitute, Percutaneous Approach (ICD-10-PCS; 2022-08-28)
PROC: 0QS03ZZ Reposition Lumbar Vertebra, Percutaneous Approach (ICD-10-PCS; 2022-08-28)
PROC: 0QU03JZ Supplement Lumbar Vertebra with Synthetic Substitute, Percutaneous Approach (ICD-10-PCS; 2022-08-28)
PROC: 0RGA0J1 Fusion of Thoracolumbar Vertebral Joint with Synthetic Substitute, Posterior Approach, Posterior Column, Open Approach (ICD-10-PCS; 2022-08-28)
PROC: 0SG10J1 Fusion of 2 or more Lumbar Vertebral Joints with Synthetic Substitute, Posterior Approach, Posterior Column, Open Approach (ICD-10-PCS; 2022-08-28)
PROC: 0RG60J1 Fusion of Thoracic Vertebral Joint with Synthetic Substitute, Posterior Approach, Posterior Column, Open Approach (ICD-10-PCS; principal; 2022-08-28 08:00)
DX: S32.022A Unstable burst fracture of second lumbar vertebra, initial encounter for closed fracture (principal); M47.16 Other spondylosis with myelopathy, lumbar region; I45.89 Other specified conduction disorders; S22.081A Stable burst fracture of T11-T12 vertebra, initial encounter for closed fracture; N13.8 Other obstructive and reflux uropathy; M51.06 Intervertebral disc disorders with myelopathy, lumbar region; G40.909 Epilepsy, unspecified, not intractable, without status epilepticus; M48.061 Spinal stenosis, lumbar region without neurogenic claudication; S32.019A Unspecified fracture of first lumbar vertebra, initial encounter for closed fracture; N20.0 Calculus of kidney; M47.26 Other spondylosis with radiculopathy, lumbar region; N40.1 Benign prostatic hyperplasia with lower urinary tract symptoms; R33.8 Other retention of urine; M25.78 Osteophyte, vertebrae; M16.12 Unilateral primary osteoarthritis, left hip; R00.0 Tachycardia, unspecified; H91.90 Unspecified hearing loss, unspecified ear; E78.5 Hyperlipidemia, unspecified; V47.0XXA Car driver injured in collision with fixed or stationary object in nontraffic accident, initial encounter; Y92.410 Unspecified street and highway as the place of occurrence of the external cause; Z79.899 Other long term (current) drug therapy; Z79.01 Long term (current) use of anticoagulants; Z91.030 Bee allergy status; Z88.5 Allergy status to narcotic agent; Z86.711 Personal history of pulmonary embolism; Z87.891 Personal history of nicotine dependence
CPT/HCPCS: 36415; 51798; 70450; 72100; 72125; 72131; 72158; 73502; 74176; 80048; 80053; 80306; 80320; 81003; 83605; 85025; 86850; 86891; 86900; 86901; 87635; 93005; 94760; 95819; 96361; 96374; 96375; 96376; 99285